=== PATIENT | female | born 1945 | race Two or more races ===

== ENCOUNTER 2019-08-25 11:30 | Outpatient (AMBR) | payer OTHER, SELFPAY ==
--- NOTE | 2019-08-12 12:27 | PTNOTE_ITS ---
PT OP Initial Eval Patient Information Visit Reasons: gait traning left distal femur Medical Diagnosis: R26 Treatment Dx #1: Abnormal Gait Treatment Dx #2: L LE Weakness Start of Care: 08/12/19 Date of Onset: 11/29/18 Initial Assessment Subjective Pt is a 74 y/o female s/p left distal femur ORIF 11/30/19 secondary to fracture from a fall. Pt did received 4 weeks of home therapy. Pt denies of pain but still has limitation with certain activities. Pt has limitation with walking, chores, self care, cooking, cleaning, prolonged standing, and performing recreational activities. Objective Left Hip AROM Flexion: 90 deg Abduction: 45 deg Extension: 10 deg Left Knee AROM: -10 deg to 120 deg Left Hip MMTs Glute Med: 3-/5 Glute Max: 3-/5 Left Knee MMTs Quads: 3/5 Hs: 3/5 SLS: unable Assessment Pt demonstrate left and knee strength deficits with decrease ROM s/p ORIF leading to decline function. Pt will benefit from physical therapy to increase strength, mobility, and work on ambulation Short Term and [employer] Goals 1) Increase left hip AROM WNL in 12 wks to be able to perform self care activities 2) Increase left knee AROM WNL in 12 wks to be able to perform stairs and steps 3) Increase left hip MMTs grossly to 4-/5 in 12 wks to be able to ambulate with SPC 4) Increase left knee MMTs to 4-/5 in 12 wks to be able to perform recreational activities 5) Indep with HEP Treatment Plan 1) Manual Therapy 2) Therapeutic Activities 3) Therapeutic Exercises 4) Modalities (ice, heat) 5) Balance Training 6) Gait Training Frequency and Duration 2 x wk for 12 wks Certification Dates: 08/12/19 to 11/12/19 Office Procedures PT Procedures PT Date of Service: 08/12/19 OP PT Eval Mod Complex 30 minutes: Yes
--- NOTE | 2019-08-15 11:54 | PT.ODAYNRPT ---
PT Outpatient Daily Note Date of Service: August 15, 2019 OP Daily Note Visit Reasons: gait traning left distal femur Outpatient Physical Therapy Treatment Date: 08/15/19 Subjective: Pt. is feeling fine and has 0/10 pain in LLE. Objective: Refer to flow sheet for list of ther ex performed. Assessment: Pt. actively participated and was able to complete all new ther ex instructed w/o difficulty. Pt. has steady inez and good toe clearance on LLE during gait training. Plan: Continue POC per PT. Length of Time (minutes) of Treatment: 30 Minutes Office Procedures PT Procedures PT Date of Service: 08/12/19 OP PT Eval Mod Complex 30 minutes: Yes PT Procedures PT Date of Service: 08/15/19 Therapeutic Exercise 30 minutes: Yes
--- NOTE | 2019-08-21 13:23 | PT.ODAYNRPT ---
PT Outpatient Daily Note Date of Service: August 21, 2019 OP Daily Note Visit Reasons: gait traning left distal femur Outpatient Physical Therapy Treatment Date: 08/21/19 Subjective: pt states she's fine upon visit. she denies pain. she is still scared to walk without her walker. Objective: see flow sheet. Assessment: pt performs the exercise well. she does not need breaks as she does not have signs of fatigue. she performed mini squats using chair and she was able to not use the hand rails. her mobility looks good. pt demonstrated good strength to be able to ambulate without walker or use SPC but she is still fearful. did notice during her new exercises involving her quad activation, she is also hip flexing. she needs more practice activating the quads rather then compensating with hip flexion. Plan: continue POC per PT. Length of Time (minutes) of Treatment: 30 Minutes Office Procedures PT Procedures PT Date of Service: 08/12/19 OP PT Eval Mod Complex 30 minutes: Yes PT Procedures PT Date of Service: 08/15/19 Therapeutic Exercise 30 minutes: Yes PT Procedures PT Date of Service: 08/21/19 Therapeutic Exercise 30 minutes: Yes
--- NOTE | 2019-08-25 11:44 | PT.ODAYNRPT ---
PT Outpatient Daily Note Date of Service: August 25, 2019 OP Daily Note Visit Reasons: gait traning left distal femur Outpatient Physical Therapy Treatment Date: 08/25/19 Subjective: Pt's leg feels good no pain. Pt's been able to walk more at home. Objective: Please see flow chart for list of ther ex performed Assessment: cues to correct monster walk; demonstrate improved dynamic balance using less hands in PB while performing exercises Plan: Continue with PT Length of Time (minutes) of Treatment: 30 Minutes Office Procedures PT Procedures PT Date of Service: 08/12/19 OP PT Eval Mod Complex 30 minutes: Yes PT Procedures PT Date of Service: 08/25/19 Therapeutic Exercise 30 minutes: Yes PT Procedures PT Date of Service: 08/15/19 Therapeutic Exercise 30 minutes: Yes PT Procedures PT Date of Service: 08/21/19 Therapeutic Exercise 30 minutes: Yes
== END 2019-08-26 23:59 | disposition home or self-care (01) ==
PROVIDERS: Visit Provider Orthopaedic Surgery
DX: Z47.89 Encounter for other orthopedic aftercare (principal); R26.2 Difficulty in walking, not elsewhere classified; R53.1 Weakness
CPT/HCPCS: 97110; 97162

== ENCOUNTER 2019-09-23 13:00 | Outpatient (AMBR) | payer OTHER, SELFPAY ==
--- NOTE | 2019-08-27 11:57 | PT.ODAYNRPT ---
PT Outpatient Daily Note Date of Service: August 27, 2019 OP Daily Note Visit Reasons: gait Outpatient Physical Therapy Treatment Date: 08/27/19 Subjective: Pt mention that she's walking around her house with less use of the walker. Pt notice improved with endurance and muscle fatigue. Pt still does not completely have balance and feels unsteady with further distance of walking Objective: Please see flow chart for list of ther ex performed Assessment: demonstrate improvement with dynamic balance. able to perform SLS longer with improve LE stability Plan: Continue with PT Length of Time (minutes) of Treatment: 30 Minutes Office Procedures PT Procedures PT Date of Service: 08/27/19 Therapeutic Exercise 30 minutes: Yes
--- NOTE | 2019-09-03 12:43 | PT.ODAYNRPT ---
PT Outpatient Daily Note Date of Service: September 03, 2019 OP Daily Note Visit Reasons: gait Outpatient Physical Therapy Treatment Date: 09/03/19 Subjective: Pt mention that leg is fine. Pt still has balance deficits Objective: Please see flow chart for list of ther ex performed Assessment: tolerate exercises with minimal pain; slowly improving with dynamic balance Plan: Continue with PT Length of Time (minutes) of Treatment: 30 Minutes Office Procedures PT Procedures PT Date of Service: 08/27/19 Therapeutic Exercise 30 minutes: Yes PT Procedures PT Date of Service: 09/03/19 Therapeutic Exercise 30 minutes: Yes
--- NOTE | 2019-09-05 15:13 | PT.ODAYNRPT ---
PT Outpatient Daily Note Date of Service: September 05, 2019 OP Daily Note Visit Reasons: gait Outpatient Physical Therapy Treatment Date: 09/05/19 Subjective: Pt mention that her hip still hurts a little that why she limps. She's been able to walk more around her house without the walker Objective: Please see flow chart for list of ther ex performed Assessment: cues to use minimal hands within PB with exercises; able to perform exercise safely Plan: Continue with PT Length of Time (minutes) of Treatment: 30 Minutes Office Procedures PT Procedures PT Date of Service: 08/27/19 Therapeutic Exercise 30 minutes: Yes PT Procedures PT Date of Service: 09/03/19 Therapeutic Exercise 30 minutes: Yes PT Procedures PT Date of Service: 09/05/19 Therapeutic Exercise 30 minutes: Yes
--- NOTE | 2019-09-12 15:31 | PT.ODAYNRPT ---
PT Outpatient Daily Note Date of Service: September 12, 2019 OP Daily Note Visit Reasons: gait Outpatient Physical Therapy Treatment Date: 09/12/19 Subjective: Pt's hip is good. Pt does not use walker inside the house now. Pt feels alot more safe walking inside the house Objective: Please see flow chart for list of ther ex performed Assessment: tolerate exercises with minimal pain Plan: Continue with PT Length of Time (minutes) of Treatment: 30 Minutes Office Procedures PT Procedures PT Date of Service: 08/27/19 Therapeutic Exercise 30 minutes: Yes PT Procedures PT Date of Service: 09/03/19 Therapeutic Exercise 30 minutes: Yes PT Procedures PT Date of Service: 09/05/19 Therapeutic Exercise 30 minutes: Yes PT Procedures PT Date of Service: 09/12/19 Therapeutic Exercise 30 minutes: Yes
--- NOTE | 2019-09-15 11:23 | PT.ODAYNRPT ---
PT Outpatient Daily Note Date of Service: September 15, 2019 OP Daily Note Visit Reasons: gait Outpatient Physical Therapy Treatment Date: 09/15/19 Subjective: pt states she is doing well. Objective: see flow sheet. Assessment: pt came in with FWW. observed pt's R foot IV as she steps side ways which could be due to the slippers she was wearing but the L foot was not showing IV. although she has IV on the R foot it does not seem to bother her as she continued with out rest breaks. she was able to march in place while holding on the rail with good balance and weight shifting as well as good ROM for BLE. Plan: continue POC per PT. Length of Time (minutes) of Treatment: 30 Minutes Office Procedures PT Procedures PT Date of Service: 08/27/19 Therapeutic Exercise 30 minutes: Yes PT Procedures PT Date of Service: 09/15/19 Therapeutic Exercise 30 minutes: Yes PT Procedures PT Date of Service: 09/03/19 Therapeutic Exercise 30 minutes: Yes PT Procedures PT Date of Service: 09/05/19 Therapeutic Exercise 30 minutes: Yes PT Procedures PT Date of Service: 09/12/19 Therapeutic Exercise 30 minutes: Yes
--- NOTE | 2019-09-17 16:13 | PT.ODAYNRPT ---
PT Outpatient Daily Note Date of Service: September 17, 2019 OP Daily Note Visit Reasons: gait Outpatient Physical Therapy Treatment Date: 09/17/19 Subjective: Pt mention that her leg is good a little pain in the knee. Objective: Please see flow chart for list of ther ex performed Assessment: no change in overall pain but able to ambulate without FWW safely within the PB Plan: Continue with PT Length of Time (minutes) of Treatment: 40 Minutes Office Procedures PT Procedures PT Date of Service: 08/27/19 Therapeutic Exercise 30 minutes: Yes PT Procedures PT Date of Service: 09/15/19 Therapeutic Exercise 30 minutes: Yes PT Procedures PT Date of Service: 09/03/19 Therapeutic Exercise 30 minutes: Yes PT Procedures PT Date of Service: 09/05/19 Therapeutic Exercise 30 minutes: Yes PT Procedures PT Date of Service: 09/12/19 Therapeutic Exercise 30 minutes: Yes PT Procedures PT Date of Service: 09/17/19 Therapeutic Exercise 45 minutes: Yes
--- NOTE | 2019-09-23 16:36 | PT.ODAYNRPT ---
PT Outpatient Daily Note Date of Service: September 23, 2019 OP Daily Note Visit Reasons: gait Outpatient Physical Therapy Treatment Date: 09/23/19 Subjective: Pt's hip is sore after but she is doing more at home. Pt mention that she walks longer around her house without the FWW Objective: Please see flow chart for list of ther ex performed Assessment: tolerate exercises with minimal pain Plan: Continue with PT Length of Time (minutes) of Treatment: 30 Minutes Office Procedures PT Procedures PT Date of Service: 08/27/19 Therapeutic Exercise 30 minutes: Yes PT Procedures PT Date of Service: 09/15/19 Therapeutic Exercise 30 minutes: Yes PT Procedures PT Date of Service: 09/03/19 Therapeutic Exercise 30 minutes: Yes PT Procedures PT Date of Service: 09/05/19 Therapeutic Exercise 30 minutes: Yes PT Procedures PT Date of Service: 09/12/19 Therapeutic Exercise 30 minutes: Yes PT Procedures PT Date of Service: 09/17/19 Therapeutic Exercise 45 minutes: Yes PT Procedures PT Date of Service: 09/23/19 Therapeutic Exercise 30 minutes: Yes
== END 2019-09-25 23:59 | disposition home or self-care (01) ==
PROVIDERS: Visit Provider Orthopaedic Surgery
DX: S72.402D Unspecified fracture of lower end of left femur, subsequent encounter for closed fracture with routine healing (principal); R53.1 Weakness; R26.2 Difficulty in walking, not elsewhere classified; W19.XXXD Unspecified fall, subsequent encounter
CPT/HCPCS: 97110

== ENCOUNTER 2019-09-29 13:16 | Outpatient (AMBR) | payer OTHER, SELFPAY ==
--- NOTE | 2019-09-29 14:12 | PT.ODS1RPT ---
PT OP Progress/Discharge Note Date of Service: September 29, 2019 Progress Note/DC Note Progress Note/Discharge Note: DC Note Patient Information Visit Reasons: GAIT TRAINING Medical Diagnosis: R26 Treatment Dx #1: Abnormal Gait Treatment Dx #2: L LE Weakness Service Continue Service or Discharge: Discharge Discharge Date: 09/29/19 Status Subjective: Pt mention that her leg is feeling okay. Pt has been able to walk around her house without the FWW. Pt mention that she continues to use a FWW to help prolonged walking. Pt's assist her with most ADLs. Pt has started light chores, cooking, and cleaning. At this time Pt feels comfortable being release from physical therapy with exercises to continue at home. Objective: Left Hip AROM Flexion: 100 deg Abduction: 45 deg Extension: 15 deg Left Knee AROM: -6 deg to 125 deg Left Hip MMTs Glute Med: 3+/5 Glute Max: 3+/5 Left Knee MMTs Quads: 4-/5 Hs: 4-/5 SLS: 3 sec Assessment: Pt demonstrate functional L LE mobility and strength allowing her to start light ADLs, chores, ambulation with less limitation. Pt will no longer benefit from physical therapy due to plateau towards goals. Pt moderately met set goals in therapy. Pt was instructed on HEP last session and educated to continue to maintain overall mobility. Pt performed all exercises safely, thank you for your referrals. Plan: D/C home with HEP and follow up with MD ALANIZ Office Procedures PT Procedures PT Date of Service: 09/29/19 Therapeutic Exercise 30 minutes: Yes
== END 2019-10-26 23:59 | disposition home or self-care (01) ==
PROVIDERS: Visit Provider Orthopaedic Surgery
DX: S72.402D Unspecified fracture of lower end of left femur, subsequent encounter for closed fracture with routine healing (principal); R53.1 Weakness; R26.2 Difficulty in walking, not elsewhere classified; W19.XXXD Unspecified fall, subsequent encounter
CPT/HCPCS: 97110

== ENCOUNTER → 2024-04-08 | Outpatient (CLI) | payer OTHER, SELFPAY ==
[2024-04-08 11:46] LABS: Basophils % (Auto) 1 % (0-2.5); Eosinophils # (Auto) 0.4 Thou/mm3 (0.0-0.5); Eosinophils % (Auto) 6 % (0-10); Hematocrit 30.6 % (36.0-46.0); Hemoglobin 10.1 g/dL (12.0-16.0); Immature Granulocytes % (Auto) 0 % (0-0); Immature Granulocytes Auto 0.01 Thou/mm3 (0.00-0.00); Lymphocytes # (Auto) 1.7 Thou/mm3 (1.0-4.8); Lymphocytes % (Auto) 29 % (10-50); Mean Corpuscular Hemoglobin 29.2 pg (25.0-35.0); Mean Corpuscular Volume 88 fL (80-100); Monocytes # (Auto) 0.6 Thou/mm3 (0.0-0.8); Monocytes % (Auto) 11 % (0-12); Neutrophils # (Auto) 3.3 Thou/mm3 (1.8-7.7); Neutrophils % (Auto) 54 % (37-80); Nucleated Red Blood Cell % 0 /100 WBC (0); Platelet Count 225 Thou/mm3 (140-440); Red Blood Count 3.46 Miln/mm3 (4.00-5.20); White Blood Count 6.1 Thou/mm3 (3.6-11.0)
[2024-04-08 12:02] LABS: Creatinine MALB Rnd Ur 41 mg/dL (30-125); Microalbumin Creat Ratio 78 mg/gCrea (<30); Microalbumin, Random Urine 32 mg/L (0-300)
[2024-04-08 12:04] LABS: Alanine Aminotransferase 209 U/L (10-49); Albumin, Serum 4.2 gm/dL (3.4-4.8); Albumin/Globulin Ratio 1.6 (1.2-2.2); Alkaline Phosphatase 197 U/L (46-116); Anion Gap 5 (7-16); Aspartate Amino Transferase 79 U/L (0-34); BUN/Creatinine Ratio 19 Ratio (12-20); Bilirubin,Total 0.5 mg/dL (0.3-1.2); Blood Urea Nitrogen 17 mg/dL (9-23); C-Reactive Protein < 0.4 mg/dL (0.0-0.9); Calcium 9.7 mg/dL (8.3-10.6); Calcium (Corrected) 9.7 mg/dL (8.5-10.1); Carbon Dioxide 28.6 mMol/L (20.0-31.0); Cardiac Risk Estimate 2.1 RATIO (3.7-5.6); Chloride 106 mMol/L (98-107); Cholesterol 186 mg/dL (132-200); Creatinine (Component) 0.9 mg/dL (0.6-1.3); Globulin 2.6 gm/dL (2.3-3.5); Glucose 102 mg/dL (74-106); HDL Cholesterol 90 mg/dL (40-60); LDL Cholesterol,Calculated 80 mg/dL (0-130); Osmolality,Calculated 280 (275-295); Sodium 140 mMol/L (136-145); Total Protein 6.8 gm/dL (5.7-8.2); Triglycerides 81 mg/dL (30-150); eGFR > 60 See Note
[2024-04-08 12:13] LABS: Sed Rate (ESR) 9 mm/hr (0-30)
[2024-04-08 12:32] LABS: Glucose Estimated Average 140 mg/dL (80-131); Hemoglobin A1C 6.5 % Hgb (4.8-6.0)
== END | disposition home or self-care (01) ==
LOC: COPL 10:32
PROVIDERS: PCP Internal Medicine; Referring Provider Internal Medicine; Visit Provider Internal Medicine
DX: M86.9 Osteomyelitis, unspecified (principal); E11.65 Type 2 diabetes mellitus with hyperglycemia; I10 Essential (primary) hypertension
CPT/HCPCS: 36415; 80053; 80061; 82043; 82570; 83036; 85025; 85652; 86140

== ENCOUNTER → 2024-04-16 | Outpatient (CLI) | payer OTHER, SELFPAY ==
--- NOTE | 2024-04-16 10:30 | XR_ITS ---
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
== END | disposition home or self-care (01) ==
LOC: COPL 10:26 → CDIM 05-14 09:28
PROVIDERS: PCP Internal Medicine; Referring Provider Podiatrist; Visit Provider Podiatrist
DX: M86.8X7 Other osteomyelitis, ankle and foot (principal)
CPT/HCPCS: 73630

== ENCOUNTER → 2024-04-30 | Outpatient (CLI) | payer OTHER, SELFPAY ==
--- NOTE | 2024-04-30 09:06 | XR_ITS ---
Examination: Foot, left, 3 views Technique: AP, oblique, lateral views foot, 3 views Date and time of exam: April 30, 2024 1011 hours Comparison April 16, 2024 INDICATIONS: Infection redness swelling and pain in the foot 8 months FINDINGS: Again noted erosions distal second metatarsal and about the first metatarsophalangeal joint No fracture Soft tissue vascular calcification IMPRESSION: Unchanged osteomyelitis second metatarsal and first metatarsophalangeal joint
== END | disposition home or self-care (01) ==
PROVIDERS: PCP Internal Medicine; Referring Provider Podiatrist; Visit Provider Podiatrist
DX: M86.172 Other acute osteomyelitis, left ankle and foot (principal)
CPT/HCPCS: 73630

== ENCOUNTER 2024-07-13 17:06 | Emergency (ER) | payer OTHER, SELFPAY ==
[2024-07-13 17:09] VITALS: BMI 32.5
--- NOTE | 2024-07-13 17:53 | XR_ITS ---
Examination: Ribs, bilateral, with PA chest, 5 views Technique: Chest PA, RIBS AP, RPO, LPO, AP coned lower ribs 5 views Exam date and time: July 13, 1999 2518.7 hours Indication: Patient fell yesterday with injury to the chest and rib pain Findings: Normal heart size No pneumothorax Significant osteopenia Acute fracture right eighth rib in the midaxillary line Impression: No pneumothorax pulmonary contusion or hemothorax Acute nondisplaced fracture right eighth rib
--- NOTE | 2024-07-13 17:53 | XR_ITS ---
Examination: CT brain head without contrast. 2-D sagittal coronal reconstructions Date and time of exam:July 13, 2024 at 1815 hrs. Indications: Patient fell today with injury to the head, loss of consciousness, patient is anticoagulated CTDI: vol (mGy):43.7 DLP: (mGycm):854 Technique: Multiple CT axial sections of the brain have been obtained, 5 mm slice thickness. Contrast has not been administered. 2-D sagittal, coronal reconstructions have been obtained Low dose protocols were performed. One or more of the following dose reduction techniques were used; automated exposure control, adjustment of the mA and/or KV according to patient size, use of iterative reconstruction technique. Findings: No significant ventricular enlargement. 10 x 12 mm focus of intraventricular hemorrhage, sagittal image 23, axial image 19 in the third ventricle No mass effect or midline shift Basal cisterns are not remarkable. Fourth ventricle is midline. Cranial vault intact. Impression: Acute hemorrhage in the third ventricle, recommend close clinical observation and short-term follow-up CT brain scans
--- NOTE | 2024-07-13 17:54 | EKG_ITS ---
[facility] Test Date: 2024-07-13 Pat Name: JOSE GRIMES Department: Room: - Gender: Female [employer] Welding Machine Operator: : 1945 Requested By: Perri Joseph Order Number: [id number] Reading MD: Perri Joseph Measurements Intervals [place] Rate: 77 P: 138 NE: 163 QRS: -23 QRSD: 83 T: 66 QT: 364 QTc: 413 Interpretive Statements SINUS RHYTHM POSSIBLE LEFT ATRIAL ENLARGEMENT [-0.1mV P WAVE IN V1/V2] POSSIBLE ANTERIOR MYOCARDIAL INFARCTION , PROBABLY OLD [30 ms Q WAVE IN V3/V4, OR R < 0.2 mV IN V4] Compared to ECG 12/07/2021 08:40:34 Myocardial infarct finding now present /store/S0/[id number]/[id number].pdf
[2024-07-13 18:05] VITALS: BP 160/99; PULSE 73; RESP 19; TEMP 36.7; O2SAT 99
[2024-07-13 18:36] LABS: Basophils % (Auto) 0 % (0-2.5); Eosinophils # (Auto) 0.2 Thou/mm3 (0.0-0.5); Eosinophils % (Auto) 3 % (0-10); Hematocrit 33.9 % (36.0-46.0); Hemoglobin 11.2 g/dL (12.0-16.0); Immature Granulocytes % (Auto) 0 % (0-0); Immature Granulocytes Auto 0.01 Thou/mm3 (0.00-0.00); Lymphocytes # (Auto) 2.4 Thou/mm3 (1.0-4.8); Lymphocytes % (Auto) 34 % (10-50); Mean Corpuscular Hemoglobin 29.1 pg (25.0-35.0); Mean Corpuscular Volume 88 fL (80-100); Monocytes # (Auto) 0.8 Thou/mm3 (0.0-0.8); Monocytes % (Auto) 11 % (0-12); Neutrophils # (Auto) 3.7 Thou/mm3 (1.8-7.7); Neutrophils % (Auto) 53 % (37-80); Nucleated Red Blood Cell % 0 /100 WBC (0); Platelet Count 207 Thou/mm3 (140-440); RDW Standard Deviation 45.8 fL (36.4-46.3); Red Blood Count 3.85 Miln/mm3 (4.00-5.20)
[2024-07-13 18:43] LABS: Alanine Aminotransferase 26 U/L (10-49); Albumin, Serum 4.6 gm/dL (3.4-4.8); Albumin/Globulin Ratio 1.5 (1.2-2.2); Alkaline Phosphatase 93 U/L (46-116); Anion Gap 9 (7-16); Aspartate Amino Transferase 23 U/L (0-34); BUN/Creatinine Ratio 22 Ratio (12-20); Bilirubin,Total 0.5 mg/dL (0.3-1.2); Blood Urea Nitrogen 24 mg/dL (9-23); Carbon Dioxide 27.3 mMol/L (20.0-31.0); Chloride 103 mMol/L (98-107); Creatinine (Component) 1.1 mg/dL (0.6-1.3); Estimated Creatinine Clearance 30.6 mL/min (>60); Globulin 3.1 gm/dL (2.3-3.5); Glucose 210 mg/dL (74-106); Osmolality,Calculated 287 (275-295); Potassium 4.7 mMol/L (3.4-5.1); Sodium 139 mMol/L (136-145); Total Protein 7.7 gm/dL (5.7-8.2); Troponin I < 0.020 ng/mL (0.0-0.045); eGFR 51 See Note
[2024-07-13 19:08] LABS: INR 0.9 (0.9-1.3); Prothrombin Time 10.1 Seconds (9.0-12.2)
[2024-07-13 20:59] LABS: B-Type Natriuretic Peptide 51 pg/mL (0-100)
--- NOTE | 2024-07-13 21:38 | PC.NURSE ---
Pt to room 7 at this time from lobby; assumed care.
--- NOTE | 2024-07-13 21:42 | EDRME_ITS ---
Rapid Medical Screening Exam [facility] Arrival date/time: 07/13/24 17:06 This is a 79-year-old female that comes into the emergency room with complaint of syncope while in the shower. Patient does not remember falling patient does not remember feeling dizzy. Patient states that all she remembers is her family picking her up from the floor. Patient's complaint is rib pain to the right side mostly and mild head pain. Patient has a history of high blood pressure, hyperlipidemia, anemia, diabetes. Patient reports that this happened yesterday Night. Patient has no focal deficit I have greeted and performed a focused initial assessment of this patient. Initial appropriate labs ordered at this time. A comprehensive ED assessment and evaluation of the patient and analysis of all test and completion of medical decision making process will be conducted by additional ED provider. Chief Complaint: Fall Time Seen by Provider: 07/13/24 17:15 Vital signs: Vital Signs Temperature 98.1 F 07/13/24 18:05 Pulse Rate 73 07/13/24 18:05 Respiratory Rate 19 07/13/24 18:05 Blood Pressure 160/99 H 07/13/24 18:05 Pulse Oximetry (%) 99 07/13/24 18:05 Oxygen Delivery Method Room Air 07/13/24 18:05
--- NOTE | 2024-07-13 21:48 | EDNOTE_ITS ---
ED Fall Injury RME/HPI General Chief Complaint: Fall Stated Complaint: FALL LAST NIGHT WITH LOC, ON PLAVIX, RT RIB PAIN Time Seen by Provider: 07/13/24 17:15 Source: patient Arrival date/time: 07/13/24 17:06 Mode of arrival: ambulatory Limitations: no limitations RME / HPI RME / HPI Narrative: 07/13/24 17:06 This is a 79-year-old female that comes into the emergency room with complaint of syncope while in the shower. Patient does not remember falling patient does not remember feeling dizzy. Patient states that all she remembers is her family picking her up from the floor. Patient's complaint is rib pain to the right side mostly and mild head pain. Patient has a history of high blood pressure, hyperlipidemia, anemia, diabetes. Patient reports that this happened yesterday Night. Patient has no focal deficit I have greeted and performed a focused initial assessment of this patient. Initial appropriate labs ordered at this time. A comprehensive ED assessment and evaluation of the patient and analysis of all test and completion of medical decision making process will be conducted by additional ED provider. Dr. Anglin?s Main ED Evaluation: 79yo female with a history of DM, HTN, HLD accompanied by her daughter presents to the ED for fall yesterday. Patient does not remember falling, reporting she woke up on the floor having right rib pain. Patient states she is on blood thinners (Plavix) due to having peripheral vascular disease. She denies any headache, neck pain, extremity pain or any other associated symptoms. No known allergies. Related Data Home Medications ?Medication ?Instructions ?Recorded ?Confirmed amlodipine 5 mg tablet 5 mg PO DAILY 11/24/1806/11 atorvastatin 40 mg tablet 40 mg PO QPM 11/24/18 benazepril 20 1 tab PO DAILY 11/24/1805/28 mg-hydrochlorothiazide 12.5 mg tablet cetirizine 10 mg tablet 10 mg PO DAILY 11/24/1805/28 clopidogrel 75 mg tablet 75 mg PO DAILY 11/24/1805/28 hydralazine 25 mg tablet 25 mg PO TID 11/24/18 metformin 500 mg tablet 500 mg PO BID 11/24/1803/01 sitagliptin phosphate 100 mg 100 mg PO QDAY 11/24/18 1 tablet (Januvia) tramadol 50 mg tablet 50 mg PO BID 11/24/18 Held on 06/11/23. Instructions: Resume on 06/12/23. warfarin 4 mg tablet 8 mg PO QDAY 11/24/18 aspirin 81 mg tablet 81 mg PO QDAY 03/01/2403/01 doxycycline hyclate 100 mg tablet 100 mg PO BID 03/01/24 ferrous sulfate 325 mg (65 mg 325 mg PO BID 03/01/24 1 iron) tablet hydrocodone 5 mg-acetaminophen 325 1 tab PO Q6H PRN Pa in 03/01/24 03/01/24 mg tablet Previous Rx's ?Medication ?Instructions ?Recorded acyclovir 400 mg tablet 400 mg PO QID #28 tabs 04/23 metoclopramide HCl 5 mg tablet 5 mg PO BID #180 tabs 0 06/11/23 (Reglan) pantoprazole 40 mg tablet,delayed 40 mg PO QDAY #90 ta bs 06/11/23 release (Protonix) tramadol 50 mg tablet 50 mg PO BID PRN pain #14 ta bs 08/28/23 Allergies Allergy/AdvReac Type Severity Reaction Status Date / Time No Known Allergies Allergy Verified 07/13/24 17:09 Review of Systems Review of Systems Systems Reviewed: All systems reviewed, normal except as documented Past Medical History Past Medical History NEUROLOGIC: Negative Neurological Disorders or Seizures CARDIAC: Positive Cardiac Disorders, Hypercholesterolemia and Hypertension; Negative Congestive Heart Failure RESPIRATORY: Negative Chronic Obstructive Pulmonary Disease (COPD) GASTROINTESTINAL: Negative Gastrointestinal Disorders GENITOURINARY: Negative Genitourinary Disorders or Renal Disease ENDOCRINE: Positive Endocrine Disorders and Diabetes Mellitus Type 2; Negative Diabetes Mellitus Type 1 HEMATOLOGIC: Positive Blood Disorders and Anemia OTHER HISTORY: Negative Autoimmune Disease, Blood Transfusions, Blood Transfusion Reaction, Anesthesia Reactions or Cancer Family History FAMILY HISTORY: Negative Family Psychiatric Problems, Family Respiratory Disorders, Family Cardiac Disorders, Family Gastrointestinal Problems, Family Cancer, Family Surgery or Family Anesthesia Reaction Surgical History SURGICAL: Positive Joint Replacement and Open Reduction Internal Fixation Social History SMOKING STATUS: Never smoker SUBSTANCE USE: does not use ED Exam Narrative Physical exam: GENERAL APPEARANCE: alert and oriented x 4, well-developed, well-nourished, no acute distress VITALS: All vitals were reviewed and the pulse ox is 99% on room air, which is normal according to my interpretation. HEENT: Normocephalic, atraumatic; pupils equal, round, reactive to light; EOMI; mucous membranes pink, moist; oropharynx clear NECK: Supple LUNGS: CTABL; no wheezes, no rales, no rhonchi HEART: Regular rate, regular rhythm; normal S1, S2; no murmurs ABDOMEN: non distended; normal BS; soft, no tenderness, no guarding, no rebound; no masses, no organomegaly, no hernia BACK: no CVA tenderness EXTREMITIES: atraumatic; no edema NEUROLOGIC: awake; alert and oriented x4; cranial nerves II-XII grossly intact; no focal sensory or motor deficits PSYCHIATRIC: appropriate mood and affect SKIN: warm, dry, ecchymosis to the right chest wall and right ear; no rashes General Limitations: Present no limitations Course Course Course Narrative: Head CT was completed at 1816 and was resulted by our radiologist, Dr. Deal, at 1908. However, our radiologist did not call us regarding CT head results. Patient sat out in the lobby until our charge nurse alerted me of the results at 2124, at which time, the patient was immediately placed in a room. Quality Measures none Orders Category Date Time Status EKG (ED ONLY) *Do not use* NOW Care 07/13/24 17:[address] head/brain wo con Stat Exams 07/13/24 17:53 Completed EKG (ED Only) Stat Exams 07/13/24 17:54 Draft XR ribs BI min 4V w CXR1V Stat Exams 07/13/24 17:53 Completed BNP [B-Type Natriuretic Peptide] Stat Lab 07/13/24 18:10 Completed CBC Stat Lab 07/13/24 18:10 Completed Comprehensive Metabolic Panel Stat Lab 07/13/24 18:10 Completed PT [Prothrombin Time with INR] Stat Lab 07/13/24 18:10 Completed Troponin I Stat Lab 07/13/24 18:10 Completed hydrALAZINE INJ [Apresoline Inj] Med 07/13/24 22:22 Discontinued 20 mg IV X1 ONE Vital Signs Vital signs: Vital Signs Temperature 98.1 F 07/13/24 18:05 Pulse Rate 73 07/13/24 18:05 Respiratory Rate 19 07/13/24 18:05 Blood Pressure 160/99 H 07/13/24 18:05 Pulse Oximetry (%) 99 07/13/24 18:05 Oxygen Delivery Method Room Air 07/13/24 18:05 Fall Patient data External records reviewed:: [facility] previous records Clinical information provided by:: patient and family Social determinants that could affect healthcare access:: none Patient has the following chronic illnesses:: see PMH How is presenting disease/condition affected by chronic disease/condition?: uneffected by Evaluation data The following diagnostics were reviewed and interpreted by me:: lab results, radiology exam(s) and EKG tracing(s) Lab and/or radiology exams considered but not ordered:: na Interpretation Summary: EKG read on 07/13/24 at 1759, personally interpreted by me, shows normal sinus rhythm (NSR) at a rate of 77 bpm, with left axis deviation, no ectopy, and Q waves in Leads II and aVF. No evidence of STEMI. I personally reviewed the radiology data and agree with the radiologist's interpretation. Examination: Ribs, bilateral, with PA chest, 5 views Technique: Chest PA, RIBS AP, RPO, LPO, AP coned lower ribs 5 views Exam date and time: July 13, 1999 2518.7 hours Indication: Patient fell yesterday with injury to the chest and rib pain Findings: Normal heart size No pneumothorax Significant osteopenia Acute fracture right eighth rib in the midaxillary line Impression: No pneumothorax pulmonary contusion or hemothorax Acute nondisplaced fracture right eighth rib Examination: CT brain head without contrast. Date and time of exam:July 13, 2024 at 1815 hrs. Indications: Patient fell today with injury to the head, loss of consciousness, patient is anticoagulated Findings: No significant ventricular enlargement. 10 x 12 mm focus of intraventricular hemorrhage, sagittal image 23, axial image 19 in the third ventricle No mass effect or midline shift Basal cisterns are not remarkable. Fourth ventricle is midline. Cranial vault intact. Impression: Acute hemorrhage in the third ventricle, recommend close clinical observation and short-term follow-up CT brain scans Dictated By: Sadiq Deal MD Medications / Prescriptions Medications or Prescriptions considered but not ordered:: na Medication administrations:: Medication Administration History Discontinued Medications Hydralazine HCl (Hydralazine Inj 20 Mg/Ml Vial) 20 mg IV X1 ONE Stop: 07/13/24 22:23 as above, if any Consultations Consultation(s) initiated? (list below): Yes Consultation #1 (Physician, Specialty, Details): Discussed case with [facility]'s transfer center. Discussed patients ED course, exam findings, labs, and radiology results. Spoke with Dr. Cintron, neurosurgeon. Awaiting callback on whether or not he accepts the patient for transfer. Time: 22:40 Consultation #2 (Physician, Specialty, Details): Dr. Cintron, neurosurgeon from [facility], accepts the patient for transfer. Time: 22:54 Diagnosis Fall Differential Diagnosis: other (ICH, fracture, contusion) Most likely diagnosis given after review of the tests above:: ventricular hemorrhage, 8th rib fracture Admission Indicated Admission indicated?: not indicated Explain why admission is indicated or not indicated:: Patient requires a transfer to a higher [id number]. Admission Request Was there a request for admission?: No Disposition Plan Disposition Plan: Transfer (to [facility]) Critical Care Time Critical Care Time Critical Care Time: Yes Total Critical Care Time (min.): 40 Attestation: The high probability of sudden, clinically significant deterioration in the patient?s condition required the highest level of my preparedness to intervene urgently. ? The services I provided to this patient were to treat and/or prevent clinically significant deterioration. Services included the following: chart data review, reviewing nursing notes and/or old charts, documentation time, workday consultant collaboration regarding findings and treatment options, medication orders and management, direct patient care, vital sign assessments and ordering, interpreting and reviewing diagnostic studies and lab tests. ? Aggregate critical care time includes only time during which I was engaged in work directly related to the patient?s care, as described above, whether at bedside or elsewhere in the Emergency Department. It did not include time spent performing other reported procedures or the services of residents, students, nurses or physician assistants. Discharge Plan Plan Patient Disposition: [facility] Pt Being Transferred to: [facility] Service Needed for Transfer: Neurosurgery Disposition Comment: Accepted by Dr. Cintron Prescriptions/Referrals Prescriptions/Med Rec: No Action hydralazine 25 mg Tablet 25 mg PO TID tramadol 50 mg Tablet 50 mg PO BID warfarin 4 mg Tablet 8 mg PO QDAY atorvastatin 40 mg Tablet 40 mg PO QPM metformin 500 mg Tablet 500 mg PO BID cetirizine 10 mg Tablet 10 mg PO DAILY clopidogrel 75 mg Tablet 75 mg PO DAILY amlodipine 5 mg Tablet 5 mg PO DAILY benazepril-hydrochlorothiazide 20-12.5 mg Tablet 1 tab PO DAILY Januvia 100 mg Tablet 100 mg PO QDAY acyclovir 400 mg tablet 400 mg PO QID Qty: 28 0RF pantoprazole [Protonix] 40 mg Tablet,Delayed Release (Dr/Ec) 40 mg PO QDAY Qty: 90 0RF metoclopramide HCl [Reglan] 5 mg Tablet 5 mg PO BID Qty: 180 0RF tramadol 50 mg tablet 50 mg PO BID MDD 100mg PRN (Reason: pain) Qty: 14 0RF hydrocodone-acetaminophen 5-325 mg Tablet 1 tab PO Q6H PRN (Reason: Pain) aspirin 81 mg Tablet 81 mg PO QDAY ferrous sulfate 325 mg (65 mg iron) Tablet 325 mg PO BID doxycycline hyclate 100 mg Tablet 100 mg PO BID Referrals: No Primary/Family,Physician [Primary Care Provider] - In 1 week Problem List Clinical Impression: Ventricular hemorrhage, Rib fracture Patient/Caregiver Discharge Instructions Print Language: Cameroonian Stand Alone Forms: [facility] Award Info., Patient Portal Info Letter
[2024-07-13 21:49] VITALS: BP 211/90; PULSE 80; RESP 18; TEMP 37.2; O2SAT 98
--- NOTE | 2024-07-13 22:35 | PC.NURSE ---
[facility] FAXED PAPERWORK FOR POSSIBLE TRAUMA TRANSFER, SPOKE WITH SHASHANK
--- NOTE | 2024-07-13 22:54 | PC.NURSE ---
THIS PT IS ACCEPTED TO [facility] BY DR. BURNS. THIS IS A ER:pER TRANSFER AND NUMBER FOR REPORT IS [phone]. [facility] [place] WAS THE FACILITY REP I SPOKE WITH [facility] ACCEPTING INFORMATION.
[2024-07-13 23:11] VITALS: BP 202/100; PULSE 82
[2024-07-13] MEDS: hydrALAZINE INJ 20 MG/ML VIAL IV (23:11)
--- NOTE | 2024-07-13 23:41 | PC.NURSE ---
report given to charge entry specialist at [facility]
== END 2024-07-13 23:42 | disposition short-term general hospital (02) ==
PROVIDERS: Nurse Practitioner Family; Emergency Provider Emergency Medicine
DX: I61.5 Nontraumatic intracerebral hemorrhage, intraventricular (principal); S22.31XA Fracture of one rib, right side, initial encounter for closed fracture; W19.XXXA Unspecified fall, initial encounter; E11.9 Type 2 diabetes mellitus without complications; I10 Essential (primary) hypertension; E78.5 Hyperlipidemia, unspecified
CPT/HCPCS: 36415; 70450; 71111; 80053; 83880; 84484; 85025; 85610; 93005; 99291; J0360

== ENCOUNTER → 2024-07-21 | Outpatient (CLI) | payer OTHER, SELFPAY ==
[2024-07-21 12:21] LABS: Basophils % (Auto) 1 % (0-2.5); Eosinophils # (Auto) 0.2 Thou/mm3 (0.0-0.5); Eosinophils % (Auto) 3 % (0-10); Hematocrit 32.1 % (36.0-46.0); Hemoglobin 10.7 g/dL (12.0-16.0); Immature Granulocytes % (Auto) 0 % (0-0); Immature Granulocytes Auto 0.01 Thou/mm3 (0.00-0.00); Lymphocytes # (Auto) 1.8 Thou/mm3 (1.0-4.8); Lymphocytes % (Auto) 26 % (10-50); Mean Corpuscular HGB Conc 33.3 g/dl (31.0-37.0); Mean Corpuscular Hemoglobin 29.4 pg (25.0-35.0); Mean Corpuscular Volume 88 fL (80-100); Monocytes # (Auto) 0.6 Thou/mm3 (0.0-0.8); Monocytes % (Auto) 9 % (0-12); Neutrophils # (Auto) 4.1 Thou/mm3 (1.8-7.7); Neutrophils % (Auto) 61 % (37-80); Nucleated Red Blood Cell % 0 /100 WBC (0); Platelet Count 240 Thou/mm3 (140-440); RDW Standard Deviation 44.1 fL (36.4-46.3); Red Blood Count 3.64 Miln/mm3 (4.00-5.20); White Blood Count 6.7 Thou/mm3 (3.6-11.0)
[2024-07-21 12:33] LABS: Glucose Estimated Average 154 mg/dL (80-131)
[2024-07-21 12:56] LABS: Alanine Aminotransferase 20 U/L (10-49); Albumin, Serum 4.2 gm/dL (3.4-4.8); Albumin/Globulin Ratio 1.7 (1.2-2.2); Alkaline Phosphatase 91 U/L (46-116); Anion Gap 10 (7-16); Aspartate Amino Transferase 21 U/L (0-34); BUN/Creatinine Ratio 26 Ratio (12-20); Bilirubin,Total 0.5 mg/dL (0.3-1.2); Blood Urea Nitrogen 23 mg/dL (9-23); Calcium 9.5 mg/dL (8.3-10.6); Calcium (Corrected) 9.5 mg/dL (8.5-10.1); Carbon Dioxide 26.6 mMol/L (20.0-31.0); Cardiac Risk Estimate 2.2 RATIO (3.7-5.6); Chloride 104 mMol/L (98-107); Cholesterol 169 mg/dL (132-200); Creatinine (Component) 0.9 mg/dL (0.6-1.3); Globulin 2.5 gm/dL (2.3-3.5); Glucose 130 mg/dL (74-106); HDL Cholesterol 78 mg/dL (40-60); LDL Cholesterol,Calculated 73 mg/dL (0-130); Osmolality,Calculated 286 (275-295); Potassium 4.5 mMol/L (3.4-5.1); Sodium 141 mMol/L (136-145); Total Protein 6.7 gm/dL (5.7-8.2); Triglycerides 89 mg/dL (30-150); eGFR > 60 See Note
[2024-07-21 13:33] LABS: Creatinine MALB Rnd Ur 49 mg/dL (30-125); Microalbumin Creat Ratio 33 mg/gCrea (<30); Microalbumin, Random Urine 16 mg/L (0-300)
== END | disposition home or self-care (01) ==
LOC: COPL 11:23
PROVIDERS: PCP Internal Medicine; Referring Provider Internal Medicine; Visit Provider Internal Medicine
DX: E11.65 Type 2 diabetes mellitus with hyperglycemia (principal); I10 Essential (primary) hypertension; E78.00 Pure hypercholesterolemia, unspecified
CPT/HCPCS: 36415; 80053; 80061; 82043; 82570; 83036; 85025

== ENCOUNTER → 2024-08-13 | Outpatient (CLI) | payer OTHER, SELFPAY ==
--- NOTE | 2024-08-13 16:00 | XR_ITS ---
Examination: Carotid arterial duplex scan, ultrasound. Date and time of exam: August 13, 2024 1613 hours INDICATIONS: Episode of syncope and collapse of one month ago Technique: Multiple sonographic images have been obtained of the carotid arteries and vertebral arteries, B-mode/grayscale imaging and Doppler spectral analysis and color flow Peak systolic and diastolic velocities have been recorded. Systolic diastolic ratios have been calculated. Findings: Right peak systolic velocities: Distal internal carotid artery peak systolic velocity is 1.2 M/sec Proximal internal carotid artery peak systolic velocity is 0.7 M/sec Carotid bifurcation peak systolic velocity is 1.1 M/sec External carotid artery peak systolic velocity is 1.2 M/sec Vertebral artery flow is antegrade. Left peak systolic velocities: Distal internal carotid artery peak systolic velocity is 0.7 M/sec Proximal internal carotid artery peak systolic velocity is 0.7 M/sec Carotid bifurcation peak systolic velocity is 1.2 M/sec External carotid artery peak systolic velocity is 0.8 M/sec Vertebral artery flow is antegrade Doppler waveform analysis demonstrates no spectral broadening Impression: Right internal carotid artery demonstrates 10-30% stenosis. Left internal carotid artery demonstrates 0-10% stenosis.
== END | disposition home or self-care (01) ==
PROVIDERS: PCP Student in an Organized Health Care Education/Training Program; Referring Provider Student in an Organized Health Care Education/Training Program; Visit Provider Student in an Organized Health Care Education/Training Program
DX: I65.23 Occlusion and stenosis of bilateral carotid arteries (principal)
CPT/HCPCS: 93880

== ENCOUNTER → 2024-09-12 | Outpatient (CLI) | payer OTHER, SELFPAY ==
[2024-09-12 11:31] LABS: Basophils % (Auto) 1 % (0-2.5); Eosinophils # (Auto) 0.3 Thou/mm3 (0.0-0.5); Eosinophils % (Auto) 4 % (0-10); Hematocrit 34.8 % (36.0-46.0); Hemoglobin 11.5 g/dL (12.0-16.0); Immature Granulocytes % (Auto) 0 % (0-0); Immature Granulocytes Auto 0.02 Thou/mm3 (0.00-0.00); Lymphocytes # (Auto) 1.9 Thou/mm3 (1.0-4.8); Lymphocytes % (Auto) 23 % (10-50); Mean Corpuscular Hemoglobin 29.3 pg (25.0-35.0); Mean Corpuscular Volume 89 fL (80-100); Monocytes # (Auto) 0.8 Thou/mm3 (0.0-0.8); Monocytes % (Auto) 11 % (0-12); Neutrophils # (Auto) 4.9 Thou/mm3 (1.8-7.7); Neutrophils % (Auto) 62 % (37-80); Nucleated Red Blood Cell % 0 /100 WBC (0); Platelet Count 226 Thou/mm3 (140-440); RDW Standard Deviation 44.5 fL (36.4-46.3); Red Blood Count 3.92 Miln/mm3 (4.00-5.20)
[2024-09-12 11:39] LABS: Alanine Aminotransferase 14 U/L (10-49); Albumin, Serum 4.7 gm/dL (3.4-4.8); Albumin/Globulin Ratio 1.9 (1.2-2.2); Alkaline Phosphatase 90 U/L (46-116); Anion Gap 7 (7-16); Aspartate Amino Transferase 17 U/L (0-34); BUN/Creatinine Ratio 19 Ratio (12-20); Bilirubin,Total 0.6 mg/dL (0.3-1.2); Blood Urea Nitrogen 19 mg/dL (9-23); Calcium 9.7 mg/dL (8.3-10.6); Calcium (Corrected) 9.7 mg/dL (8.5-10.1); Carbon Dioxide 29.5 mMol/L (20.0-31.0); Cardiac Risk Estimate 2.4 RATIO (3.7-5.6); Chloride 106 mMol/L (98-107); Cholesterol 179 mg/dL (132-200); Globulin 2.5 gm/dL (2.3-3.5); Glucose 110 mg/dL (74-106); HDL Cholesterol 74 mg/dL (40-60); LDL Cholesterol,Calculated 81 mg/dL (0-130); Osmolality,Calculated 286 (275-295); Potassium 4.5 mMol/L (3.4-5.1); Sodium 142 mMol/L (136-145); Total Protein 7.2 gm/dL (5.7-8.2); Triglycerides 120 mg/dL (30-150); eGFR 57 See Note
[2024-09-12 11:47] LABS: Glucose Estimated Average 157 mg/dL (80-131); Hemoglobin A1C 7.1 % Hgb (4.8-6.0)
[2024-09-12 12:11] LABS: Ferritin 41 ng/mL (7.3-270.7); Iron 55 mcg/dL (50-170); Percent Iron Saturation 19 % (20-55); Total Iron Binding Capacity 286 mcg/dL (250-425); Unsaturated Iron Binding 231 (225-295)
== END | disposition home or self-care (01) ==
LOC: COPL 09:40
PROVIDERS: PCP Internal Medicine; Referring Provider Internal Medicine; Visit Provider Internal Medicine
DX: E11.65 Type 2 diabetes mellitus with hyperglycemia (principal); I10 Essential (primary) hypertension; E78.00 Pure hypercholesterolemia, unspecified; I73.9 Peripheral vascular disease, unspecified; M86.9 Osteomyelitis, unspecified
CPT/HCPCS: 36415; 80053; 80061; 82728; 83036; 83540; 83550; 85025

== ENCOUNTER → 2024-10-15 | Outpatient (CLI) | payer OTHER, SELFPAY ==
--- NOTE | 2024-10-15 12:00 | XR_ITS ---
Examination: Bone densitometry Date and time of exam:October 15, 2024 1234 hours INDICATIONS: Menopause age 47 postmenopausal hip fracture personal history osteopenia Technique: Lumbar spine and hip total bone mineralization values of an calculated. Peak reference and age match control results have been displayed. Findings: Lumbar spine total bone mineralization is0.860 gm/cm2. This is 1.7 standard deviations below peak reference. This is 1.0 standard deviations above age-matched controls. Hip total bone mineralization is 0.718 gm/cm2 This is 1.8 standard deviations below peak reference. This is 0.2 standard deviations above age-matched controls Impression: There is osteopenia based on lumbar spine measurements. There is osteopenia based on hip measurements Lumbar mineralization is increase 0.6% compared with August 22, 2019 Hip mineralization is decreased 7.9% compared with August 22, 2019
== END | disposition home or self-care (01) ==
PROVIDERS: PCP Internal Medicine; Referring Provider Internal Medicine; Visit Provider Internal Medicine
DX: M85.89 Other specified disorders of bone density and structure, multiple sites (principal)
CPT/HCPCS: 77080

== ENCOUNTER → 2024-12-19 | Outpatient (CLI) | payer OTHER, SELFPAY ==
--- NOTE | 2024-12-19 15:39 | XR_ITS ---
Examination: Foot, left, 3 views Technique: AP, oblique, lateral views foot, 3 views Date and time of exam: December 19, 2024 1545 hours Comparison April 30, 2024 INDICATIONS: Redness swelling and pain involving the foot with discharge one year, chronic osteomyelitis FINDINGS: Severe osteopenia Stable erosions involving distal second metatarsal Chronic erosions also distal phalanx fifth digit Erosions at the first metatarsophalangeal joint IMPRESSION: Osteoarthritis as above, consider MRI foot without contrast follow-up
== END | disposition home or self-care (01) ==
LOC: CDIM 15:24
PROVIDERS: Referring Provider Podiatrist; Visit Provider Podiatrist
DX: M19.072 Primary osteoarthritis, left ankle and foot (principal)
CPT/HCPCS: 73630